=== PATIENT | female | born 1995 | race Caucasian/White ===

== ENCOUNTER → 2017-01-09 | Outpatient (CLI) | payer OTHER | LOC: BMCIMAGING 16:20 | PROVIDERS: ATTEND Family Medicine | DX: M25.512 Pain in left shoulder (principal) ==

== ENCOUNTER 2017-05-28 21:20 | Emergency (ER) | payer OTHER ==
[2017-05-28 21:27] VITALS: RESP 16; TEMP 97.5
--- NOTE | 2017-05-28 21:41 | EDPHY ---
H & P Stated Complaint: Swollen hip. Time Seen by Provider: 05/28/17 21:31 HPI/ROS: CHIEF COMPLAINT: Soft tissue swelling right hip area HISTORY OF PRESENT ILLNESS: 21-year-old female with history of multiple right hip surgeries most recently in 2013, arrives via private vehicle complaining of soft tissue swelling to her surgical sites after lacrosse practice this evening , as well as itching to the area. No acute trauma to the area. She is able to bear weight and has normal range of motion. No discoloration. No fever no chills. I PHYSICAL EXAM (Prior to examination, patient consented to physical exam, hands were washed and my usual and customary physical exam procedures followed) 1) GENERAL: Well-developed, well-nourished, alert and oriented. Appears to be in no acute distress. 2) HEAD: Normocephalic 3) HEENT: sclera anicteric 4) LUNGS: Breathing comfortably. 5) SKIN: Multiple surgical scars are noted in the right proximal thigh and hip region. Soft tissue swelling is noted to the surgical area as well with normal color, normal temperature. 6) MUSCULOSKELETAL: Compartments are soft. There is no pain with axial loading of the acetabulum and she has pain-free range of motion. Observed ambulating with stable gait. She has a baseline leg discrepancy and this is noted on relation. Distal DP PT pulses present and brisk 7) NEUROLOGIC: Full sensation distally DIFFERENTIAL DIAGNOSIS: In no particular order including but not limited to septic arthritis contacted hardware, cellulitis - Personal History Current Tetanus/Diphtheria Vaccine: Unsure Current Tetanus Diphtheria and Acellular Pertussis (TDAP): Unsure - Medical/Surgical History Hx Asthma: Yes Hx Chronic Respiratory Disease: No Hx Diabetes: No Hx Cardiac Disease: No Hx Renal Disease: No Hx Cirrhosis: No Hx Alcoholism: No Hx HIV/AIDS: No Hx Splenectomy or Spleen Trauma: No Other PMH: Hip surgery, [place]and's. - Social History Smoking Status: Never smoked Constitutional: Initial Vital Signs Temperature (C) 36.4 C 05/28/17 21:23 Heart Rate 75 05/28/17 21:23 Respiratory Rate 16 05/28/17 21:23 Blood Pressure 103/68 05/28/17 21:23 O2 Sat (%) 97 05/28/17 21:23 O2 Delivery Mode Room Air Allergies/Adverse Reactions: shellfish derived Allergy (Verified 05/28/17 21:28) tree nut Allergy (Verified 05/28/17 21:28) Home Medications: Medication Instructions Recorded Citalopram 05/28/17 RITALIN LA 05/28/17 Medical Decision Making - Diagnostics Imaging Results: Imaging Impressions Hip X-Ray 05/28/17 21:38 Impression: Postsurgical changes right hip, as above. No evidence for acute osseous abnormality. Images reviewed myself ED Course/Re-evaluation: 10:35 p.m.: This patient was re-evaluated with serial examinations, most recently at this time. I think that septic arthritis or infected hardware is less than likely in the absence of fever, flu-like symptoms, in the presence of full pain-free range of motion. There is no evidence of periprosthetic fracture or prosthetic fracture on x-ray. Because of timing of this, notably inflammation started after lacrosse practice we discussed possibility of transient information related to overuse. I think that this is more than likely the acute etiology. However I have recommended follow up with her surgeons in [place] and the next few days. Recommend cold packs. Definitely if she develops fever, chills, is unable to bear weight, she needs to return to the ER immediately for re-evaluation. She feels comfortable with this plan. Usual and customary discharge precautions instructions provided. Care of patient under supervision of secondary supervising physician Dr Paola Matthews. Departure - Departure Disposition: Home, Routine, Self-Care Clinical Impression: Swelling of thigh Condition: Good Instructions: Hip Sprain (ED) Additional Instructions: Keep ice packs applied to the area, rest the area, return to the ER if you develop a fever, if you have pain with range of motion, if you are unable to bear weight or any other symptoms that concern you. Referrals: Follow-up, with your [place] orthopedic surgeons in 2-3 days [Other] - As per Instructions
[2017-05-28 22:48] VITALS: BP 105/62; PULSE 68; O2SAT 99
== END 2017-05-28 22:47 | disposition home or self-care (01) ==
DX: R22.41 Localized swelling, mass and lump, right lower limb (principal); J45.909 Unspecified asthma, uncomplicated